=== PATIENT | male | born 1955 ===

== ENCOUNTER 2018-10-13 19:25 | Emergency (ER) | payer MEDICARE ==
[2018-10-13] MEDS ORDERED: Sodium Chloride 0.9% 1,000 ML IV STA ×3 (19:46→22:49)
[2018-10-13 20:40] LABS: BASO % 0.4 % (0.0-2.0); EOS # 0.5 K/uL (0.0-0.7); EOS % 6.6 % (0.0-4.0); HEMOGLOBIN 12.8 g/dL (12.0-18.0); LYMPH # 3.2 K/uL (1.0-4.3); LYMPH % 46.2 % (20.0-40.0); MEAN CELL VOLUME 94.3 fl (80.0-94.0); MEAN CORPUSCULAR HGB CONC 33.9 g/dL (33.0-37.0); MEAN PLATELET VOLUME 7.7 fl (7.2-11.7); MONO # 0.7 K/uL (0.0-0.8); MONO % 10.2 % (0.0-10.0); NEUT # 2.5 K/uL (1.8-7.0); NEUT % 36.6 % (50.0-75.0); NRBC % 0.1 % (0.0-0.0); RBC 3.99 Mil/uL (4.40-5.90); RED CELL DISTRIBUTION WIDTH 13.9 % (11.5-14.5); WHITE BLOOD COUNT 6.9 K/uL (4.8-10.8)
[2018-10-13 20:51] LABS: ALB/GLOB RATIO 1.4 (1.0-2.1); ALBUMIN 4.2 g/dL (3.5-5.0); ALT/SGPT 27 U/L (21-72); AST/SGOT 32 U/L (17-59); BLOOD UREA NITROGEN 15 mg/dl (9-20); CALCIUM 8.5 mg/dL (8.4-10.2); GFR NON-AFRICAN AMERICAN > 60; LIPASE 168 U/L (23-300)
--- NOTE | 2018-10-13 21:34 | ED PDOC ---
HPI: Abdomen Time Seen by Provider: 10/13/18 19:45 Chief Complaint (Nursing): Abdominal Pain Chief Complaint (Provider): Abdominal Pain History Per: Patient History/Exam Limitations: no limitations Onset/Duration Of Symptoms: Sudden Onset Current Symptoms Are (Timing): Still Present Severity: Severe Location Of Pain/Discomfort: LUQ Quality Of Discomfort: "Pain" Additional Complaint(s): 63 year old male with no signficant medical history presents to the ED with sudden onset, LUQ pain. Patient reports that pain is so severe it caused him to double over. He does not have an appetite. He states that he has not experienced similar symptoms before. Patient denies tobacco but states that he drinks "a little bit each day". When asked to quantify "a little bit" he says "I don't know. Maybe 4,5,6,7, or 8 beers each day". Patient also denies nausea, vomiting, fever, trauma and pain on urination. PMD: none provided Past Medical History Reviewed: Historical Data, Nursing Documentation, Vital Signs Vital Signs: Last Vital Signs Temp 97.8 F 10/13/18 19:26 Pulse 60 10/13/18 19:26 Resp 16 10/13/18 19:26 BP 117/64 10/13/18 19:26 Pulse Ox 98 10/13/18 19:26 Primary Care Provider: Dennise Chopra - Medical History PMH: No Chronic Diseases - Surgical History Surgical History: No Surg Hx - Family History Family History: States: Unknown Family Hx - Social History Current smoker - smoking cessation education provided: No Alcohol: > 2 Drinks/Day - Allergies Allergies/Adverse Reactions: Allergies Allergy/AdvReac Type Severity Reaction Status Date / Time No Known Allergies Allergy Verified 10/13/18 19:30 Review of Systems ROS Statement: Except As Marked, All Systems Reviewed And Found Negative Gastrointestinal: Positive for: Abdominal Pain (severe LUQ pain). Negative for: Nausea, Vomiting, Diarrhea Genitourinary Male: Negative for: Dysuria Physical Exam - Reviewed Nursing Documentation Reviewed: Yes Vital Signs Reviewed: Yes - Physical Exam Appears: Positive for: No Acute Distress Head Exam: Positive for: ATRAUMATIC, NORMAL INSPECTION, NORMOCEPHALIC Skin: Positive for: Normal Color, Warm, Dry Eye Exam: Positive for: EOMI, Normal appearance, PERRL Neck: Positive for: Normal, Painless ROM, Supple Cardiovascular/Chest: Positive for: Regular Rate, Rhythm. Negative for: Murmur Respiratory: Positive for: Normal Breath Sounds. Negative for: Respiratory Distress Gastrointestinal/Abdominal: Positive for: Tenderness (LUQ), Guarding. Negative for: Other (ecchymosis, laceration and signs of trauma to torso or abdomen) Back: Positive for: Normal Inspection. Negative for: L CVA Tenderness, R CVA Tenderness Extremity: Positive for: Normal ROM. Negative for: Deformity Neurological/Psych: Positive for: Awake, Alert, Normal Tone, Oriented (x 3). Negative for: Motor/Sensory Deficits - Laboratory Results Result Diagrams: 10/13/18 20:08 10/13/18 20:08 Lab Results: Total Bilirubin 0.4 mg/dl (0.2-1.3) 10/13/18 20:08 AST 32 U/L (17-59) 10/13/18 20:08 ALT 27 U/L (21-72) 10/13/18 20:08 Alkaline Phosphatase 54 U/L (38-126) 10/13/18 20:08 Total Protein 7.1 G/DL (6.3-8.2) 10/13/18 20:08 Albumin 4.2 g/dL (3.5-5.0) 10/13/18 20:08 Globulin 2.9 gm/dL (2.2-3.9) 10/13/18 20:08 Albumin/Globulin Ratio 1.4 (1.0-2.1) 10/13/18 20:08 Lipase 168 U/L (23-300) 10/13/18 20:08 - ECG O2 Sat by Pulse Oximetry: 98 (RA) Pulse Ox Interpretation: Normal Medical Decision Making Medical Decision Makin:46 MDM: Sudden onset, severe abdominal pain Labs, IV fluids, Morphine, CT Abdomen Pelvis Reassess 0 Alerted by RN that the patient was now complaining of sudden worsening of pain with a drop of BP to systolic 70s. Pt now complaining of mass to the upper abd just to the left of midline. Bedside, that mass is visible and palpable. NOT pulsatile and feels like a lipoma. Pt guarding. EKG shows NSR. Labs show no anemia, leukocytosis, and no elevation in BUN/creatinine, LFTs, or lipase. Pt go get CT abd pelvis to rule out AAA, obstruction or other abdominal pathology. 22:53 CT ANGIOGRAPHY FINDINGS: VASCULATURE: AORTA There is no evidence for aneurysm or dissection of the thoracic or abdominal aorta. Extensive atherosclerotic vascular plaquing is present. PULMONARY ARTERIES The examination is optimized for assessment of the aorta, rather than the pulmonary arteries. No evidence of central or segmental pulmonary embolism is seen. CHEST: Lungs: The lungs appear clear. No mass or consolidation. Pleural spaces: No pneumothorax evident. No pleural effusions. Heart: No cardiomegaly. No pericardial effusion. ABDOMEN: LIVER There is hepatomegaly. The liver measured 18.2 cm in the midclavicular line. No mass. GALLBLADDER AND BILE DUCTS No calcified stone. No ductal dilation. PANCREAS Unremarkable. No ductal dilation. SPLEEN There is intrasplenic active hemorrhage seen with intra-parenchymal and perisplenic hematoma identified thought compatible with at least a splenic injury scale grade III hematoma. The splenic artery appears intact to the hilum. ADRENAL No mass. KIDNEYS AND URETERS The kidneys enhance symmetrically. No hydronephrosis. No solid mass. STOMACH AND BOWEL No obstruction. No bowel wall thickening. No CT evidence of acute diverticulitis. APPENDIX No CT evidence of appendicitis. PELVIS: URINARY BLADDER Unremarkable. REPRODUCTIVE The seminal vesicles appeared normal and symmetrical in size. There is mild prostatic hypertrophy noted. The prostate gland measured 5.1 cm transversely. PERITONEUM There is intraperitoneal fluid is seen in the abdomen and pelvis compatible with intraperitoneal blood. No free air. A small left inguinal hernia is noted which contains fat. LYMPH NODES No lymphadenopathy is evident. BONES A minimal transverse fracture is seen in the anterior aspect of left rib 7. IMPRESSION: 1. There is no evidence for aneurysm or dissection of the thoracic or abdominal aorta. 2. Intrasplenic and perisplenic hematoma noted with active intrasplenic hemorrhage compatible with at least grade III splenic injury scale score. 3. A considerable volume of intraperitoneal blood is noted. 4. Hepatomegaly. 5. Minimal transverse fracture identified in the anterior aspect of left rib 7. 6. Mild prostatic hypertrophy. 7. Small left inguinal hernia containing fat. Immediately placed second IV line Blood pressure remained stable in the 80s Consulted patient for transfer as well as central line. 23:10 Contacted [facility] [place]. Spoke with trauma surgery resident and attending physician, Dr. Jaxon Vidales who have accepted transfer. Also spoke with ED accepting physician, Dr. Will. 23:20 Discussed need with patient for possible blood transfusion and pressors Patient agreeable to all of the above. spring intern Vince Royal to assist in answering all questions in both Monegasque and Maori. 23:43 Patient has been sterile prepped. Central line procedure initiated. However, not tolerating line flat. Patient became nauseous with retching and could not hold still. Procedure was aborted for patient's safety. During set up for procedure, transport had already arrived. Blood pressure was 96/56. Transport said average time to [facility] was approximately 10 minutes. Blood pressure was stable. Patient comfortable and given Zofran due to sudden nausea. It was decided not to start transfusion as this would delay transfer. Patient stable. Shortly after patient left, trauma resident from [facility] called for an update. Informed resident that the patient was on the way and that transfusion was not initiated due to expediting transfer and patient stability. Resident confirmed it would be initiated on their end. ------- Scribe Attestation: Documented by Brooke Mtz, acting as a scribe for Flor Bruce MD. Provider Scribe Attestation: All medical record entries made by the Scribe were at my direction and personally dictated by me. I have reviewed the chart and agree that the record accurately reflects my personal performance of the history, physical exam, medical decision making, and the department course for this patient. I have also personally directed, reviewed, and agree with the discharge instructions and disposition. Disposition - Clinical Impression Clinical Impression: Abdominal pain, Splenic laceration - Patient ED Disposition Is Patient to be Admitted: Transfer of Care - Disposition Disposition: Other Institution ([facility]) Disposition Time: 23:43 Condition: GUARDED Forms: [employer] (Monegasque)
[2018-10-13] MEDS ORDERED: Sodium Chloride 0.9% 50 ML IV ONE (22:01)
[2018-10-13] MEDS ORDERED: Iodixanol 320 MG/ML 100 ML BOTTLE IV ONE (22:01)
[2018-10-13 22:53] LABS: INR 1.1
[2018-10-13 22:56] LABS: PARTIAL THROMBOPLASTIN TIME 27.1 Seconds (25.6-37.1)
[2018-10-13 23:37] LABS: URINE BILIRUBIN NEGATIVE (NEGATIVE); URINE BLOOD NEGATIVE (NEGATIVE); URINE CLARITY SLIGHTY-CLOUDY (Clear); URINE COLOR YELLOW (YELLOW); URINE GLUCOSE (UA) NEG (NEGATIVE); URINE LEUKOCYTE ESTERASE NEG Leu/uL (Negative); URINE PROTEIN NEGATIVE (NEGATIVE); URINE UROBILINOGEN 0.2-1.0 mg/dL (0.2-1.0)
[2018-10-13 23:47] VITALS: BP 96/56; PULSE 70; RESP 13; TEMP 98.3
--- NOTE | 2018-10-14 11:24 | CT ---
PROCEDURE: CT Angiography Chest, Abdomen and Pelvis with and without intravenous contrast HISTORY: LUQ pain, drop BP COMPARISON: 06/20/2018. Abdominal aortic ultrasound. Summary of findings on the comparison examination: No evidence of aortic aneurysm or occlusion. TECHNIQUE: Contiguous axial images of the chest, abdomen and pelvis were obtained in the phase of aortic enhancement. A noncontrast enhanced CT of the chest was also obtained to evaluate for possible intramural thrombus. Coronal and sagittal reformats were generated. IV dose administered: 90 cc Visipaque 320. Radiation dose: Total exam DLP = 826.78 mGy-cm. This CT exam was performed using one or more of the following dose reduction techniques: Automated exposure control, adjustment of the mA and/or kV according to patient size, and/or use of iterative reconstruction technique. FINDINGS: CT ANGIOGRAPHY OF THE CHEST WITH & WITHOUT CONTRAST: AORTA (CHEST AND ABDOMEN): The thoracic and abdominal aorta are unremarkable, without aneurysm, dissection or rupture. No intramural thrombus identified in the thoracic aorta on the non-contrast ct of the chest. The celiac axis, superior mesenteric artery, inferior mesenteric artery and the renal arteries are widely patent. The pelvic arteries are unremarkable. LUNGS: Dependent by lateral basilar atelectasis. MEDIASTINUM: Unremarkable. Normal caliber aorta and pulmonary arterial trunk. No aortic dissection. Normal size heart. LYMPH NODES: Unremarkable. PLEURA: Unremarkable. No pneumothorax. No pleural fluid. BONES: Unremarkable. OTHER FINDINGS: None. CT ANGIOGRAPHY OF THE ABDOMEN AND PELVIS WITH CONTRAST: LIVER: Unremarkable. No gross lesion or ductal dilatation. GALLBLADDER AND BILE DUCTS: Unremarkable. PANCREAS: Unremarkable. No gross lesion or ductal dilatation. SPLEEN: Splenic injury resulting in both intra splenic and intra-abdominal/peritoneal hemorrhage. Subcapsular hemorrhage/hematoma with mean Hounsfield unit values 105. Hemorrhage appears to be coming from branch vessels of the splenic artery. Orthogonal measurements of the spleen 10.6 x 13.7. The crescentic intrasplenic hemorrhagic process/hematoma 2.3 x 7.2 cm. Branch vessels leading to the hemorrhage are best seen on coronal series 604/93 image. The finding is marked on the study for review. ADRENALS: Unremarkable. No mass. KIDNEYS AND URETERS: Unremarkable. No hydronephrosis. No solid mass. VASCULATURE: Unremarkable. No aortic aneurysm. No aortic atherosclerotic calcification or mural plaque present. STOMACH AND BOWEL: The stomach is displaced and compressed by the acute process in the left upper quadrant. Dilated proximal small bowel overall appearance suggests ileus rather than obstruction. Mild thickening of the wall of the descending colon at the site were hemorrhagic fluid identified. APPENDIX: A normal appendix is visualized in it's entirety. PERITONEUM: Large volume intra-abdominal pelvic ascites, hemorrhagic based on Hounsfield unit values vary from 62-77. LYMPH NODES: Unremarkable. No enlarged lymph nodes. BLADDER: Unremarkable. REPRODUCTIVE: Unremarkable. BONES: No acute fracture. OTHER FINDINGS: None. IMPRESSION: Acute hemorrhagic process the origin of which is in the spleen. Extravasation noted in branch vessels of the splenic artery. Both subcapsular hemorrhage and large volume intra-abdominal/pelvic hemorrhage is seen. No evidence of aortic aneurysm or dissection. Additional benign and/or incidental findings described above. Concordant results (preliminary interpretation) provided by [facility]. Procedure Completed: 22:14. Preliminary Report: Interpreted and electronically signed: 22:53. Final Interpretation:
[2018-10-14 17:18] VITALS: O2SAT 98
== END 2018-10-13 23:40 | disposition short-term general hospital (02) ==
LOC: H.ER 19:25
DX: S36.039A Unspecified laceration of spleen, initial encounter (principal); R10.12 Left upper quadrant pain
CPT/HCPCS: 71275; 74175; 80053; 81003; 83690; 84484; 85025; 85610; 85730; 86850; 86900; 96374; 96375; 99285; J1885; J2270; J2405; J2765; J7030; Q9967